=== PATIENT | female | born 2000 | race Caucasian/White ===

== ENCOUNTER 2022-07-19 11:27 | Day surgery (SDC) | payer MEDICAID, SELFPAY ==
[2022-07-19 12:08] LABS: Internal QC Validated? YES +Cl - CLEAR BKGD; Pregnancy, Urine Negative Negative
[2022-07-19 12:12] VITALS: BP 112/71; PULSE 54; RESP 16; TEMP 37.1; O2SAT 97; BMI 27.1
[2022-07-19 12:29] LABS: Hematocrit 44.7 % (37-47); Hemoglobin 15.3 g/dL (12.0-15.0); Mean Corp Hgb Conc 34.2 g/dL (32-36); Mean Corpuscular Hgb 29.8 pg (27.0-32.0); Mean Corpuscular Volume 87.1 fL (81-99); Mean Platelet Vol. 10.6 fl (6.2-12.0); Platelet Count 240 K/mm3 (150-450); RBC Distribution Width CV 12.1 % (11.6-14.6); RBC Distribution Width SD 38.8 fl (35.1-43.9); Red Blood Count 5.13 M/mm3 (4.2-5.4); White Blood Count 7.7 K/mm3 (4.4-11.0)
[2022-07-19] MEDS: Lactated Ringers 1,000 ML 15 ML IV (12:31)
--- NOTE | 2022-07-19 13:00 | FALS_PTH ---
PATIENT: ROULA NICOLAS [place] [facility] [id number] AGE/SX: 21/ ROOM: RE07/19/[address]: Dr. Danette Yanez DO : 2000 BED: DIS: 07/19/2022 SPEC #: [id number] RECD: 07/22/22 07:33 STATUS: ALICIA MARCY #: [id number] ALYX: 07/19/22 13:[address]: Danette Yanez DEPT: SURGICAL PATHOLOGY RECD BY: Altagracia Bocanegra ENTERED: 07/22/22 08:21 SP TYPE: FALL TUBES OTHR DR: Flora Phelps PA-C Tissues: Fallopian tube Procedures: Surgery Specimen Level II HEADER OPERATION: Laparoscopic salpingectomy, IUD removal PRE-OP DIAGNOSIS: Request for sterilization TISSUE SUBMITTED: Bilateral fallopian tubes MICROSCOPIC DIAGNOSIS Bilateral fallopian tubes, salpingectomy: Bilateral fallopian tubes, no pathologic diagnosis. A paratubal cyst. SJ:paige 07/23/2022 MICROSCOPIC DESCRIPTION Slides are reviewed. GROSS DESCRIPTION Received in fixative is one container labeled with the patient's name and designated bilateral fallopian tubes. The specimen consists of bilateral fallopian tubes including fimbrial ends. One of the fallopian tubes measures 3.5 cm in length and 0.5 cm in diameter. A paratubal cyst is noted adjacent to this fallopian tube measuring 1 cm in greatest dimension. The second fallopian tube is received in two pieces and measures 4 cm in length and 0.5 cm in diameter. The fallopian tubes are not identified as right or left. Sections reveal unremarkable cut surfaces. Operations Agent sections are submitted in two cassettes as follows: 1 - intact fallopian tube, 2 - fallopian tube received in two pieces. / JANEE:paige 07/22/2022 TC:5 CPT: 11351 x2
--- NOTE | 2022-07-19 13:50 | DCINST_ITS ---
Discharge Instructions Diet Discharge Diet: No restrictions Activity Discharge Activity: May Drive (Once you are no longer taking Percocet. Once you feel you strong enough to slam on a break or turn a steering wheel sharply) May resume sexual activity in: 1 week (No intercourse, tampons, or soaking in water for 1 week) Ice area for (Minutes): 15 Weight Bearing Status: Weight bearing as tolerated Lifting Restrictions: Nothing heavier than 10-15 lbs for 1 week Dressing / Incision Call your doctor if your incision/area has: Continuous Slow Oozing, Sudden Increased Bleeding, Increased Pain/ Swelling, Increased Redness, Foul Smelling Discharge and Swelling at the incision site Call your doctor if you observe: Fever of 101 or Higher, Coldness, Increased Pain, Numbness or Tingling, Change in Color, Inability to urinate, Inability to have a bowel movement, Using more than 1 pad per hour, Shortness of breath, Dizziness, Fainting spells, Swelling in the ankles, Chest pain, Increased palpitations (irregular heartbeat), Calf discomfort and Uncontrolled pain Suture Line Care: Avoid Pulling/Pushing and Avoid Pinching/Bending Remove Dressing in: leave until fall off Cleanse incision/area with: Soap & Water Follow Up Care Please Follow Up With: Danette Yanez DO When: 1 week post op Test Results: Test results from this visit will be discussed in further detail at your follow- up appointment, if applicable. Discharge Plan Admission Primary Reason for Your Visit: surgery Attending Provider: Danette Yanez Primary Care Provider: Flora Phelps Discharge Orders/Prescriptions Prescriptions: New oxycodone-acetaminophen [Percocet] 5-325 mg tablet 1 tab PO Q6H PRN (Reason: pain) 7 Days Qty: 10 0RF Referrals / Follow Up: Flora Phelps PA-C [Primary Care Provider] - Disposition Disposition (needs filled in before D/C Order can be placed): Home, Self Care
--- NOTE | 2022-07-19 13:53 | OP.PCM_ITS ---
Problems Associated Problem List Diagnoses (1) Sterilization: Report of Operation Date of Procedure: 07/19/22 Pre-Operative Diagnosis: Request for sterilization IUD removal Post-Operative Diagnosis: As above Surgery/Procedure Performed:: Laparoscopic bilateral salpingectomy IUD removal Description of Surgical Findings:: IUD removed intact. Normal appearing pelvis. Normal appearing uterus and bilateral adnexa Surgeon: Danette Yanez sporting goods sales associate: None Type of Anesthesia: General Special Medications: None Specimen's removed: Bilateral fallopian tubes Drains: None Estimated Blood Loss (mL): < 50 cc Fluids Replaced: 600 cc Description of Procedure: The patient was taken to the operating room where general anesthesia was induced. She was prepped and draped in the dorsal lithotomy position using yellowfin stirrups. A weighted speculum was placed in the vagina to expose the cervix. The anterior lip of the cervix was grasped with a single-tooth tenaculum. The intrauterine device was removed using a ring forcep. IUD strings were grasped and using gentle traction the IUD was removed intact. A uterine manipulator was placed. The weighted speculum was removed. Gloves were changed and attention was turned to the abdominal portion of the procedure. Local was infiltrated at all port sites. An infraumbilical 5 mm incision was made to accommodate a 5 mm port. This 5 mm infraumbilical port was placed under direct visualization using the laparoscope. Once confirmed intraperitoneal, CO2 insufflation was initiated. Bowel was inspected after entry and no obvious injury noted. Patient was placed in Trendelenburg. A left lateral 5 mm port was placed. A right lateral 5 mm port was placed. The pelvis was noted to be normal-appearing. The uterus and bilateral adnexa were normal-appearing. The left fallopian tube was elevated out of the pelvis and followed out to the fimbriated end. Using the LigaSure device the mesosalpinx was serially clamped, cauterized, and transected hugging adjacent to the tube until reaching level of the cornua. Once at the level of the cornua the fallopian tube was transected and removed. The same was performed on the right after following the right fallopian tube out to the fimbriated end. The right mesosalpinx was serially clamped, cauterized, and transected hugging adjacent to the tube until reaching level of the cornua. Once at the level cornua the right fallopian tube was removed. Bilateral fallopian tubes were sent to pathology for review. Hemostasis was noted. The abdomen was exsufflated and all ports were removed. The port sites were closed with suture and glue. From below all instruments were removed from the vagina and vaginal sweep was performed. Instrument, spong e, needle counts were correct. The patient was taken to the recovery in stable condition. Grafts/Implants Used: None Procedure Start Time: 14:29 Procedure Stop Time: 15:06 Complications None Admit VTE Documentation VTE Present on Admission: No VTE Mechan Device Prophylaxis: SCD's
[2022-07-19 15:16] VITALS: BP 111/72; BP 112/71; PULSE 69; RESP 18; TEMP 36.5; O2SAT 96
[2022-07-19 15:30] VITALS: BP 103/72; BP 112/71; PULSE 52; RESP 16; O2SAT 99
[2022-07-19 15:44] VITALS: BP 112/71; BP 99/63; PULSE 47; RESP 16; O2SAT 99
[2022-07-19 16:00] VITALS: BP 112/71; BP 97/66; PULSE 52; RESP 16; TEMP 36.5; O2SAT 98
[2022-07-19 16:44] VITALS: BP 103/73; BP 112/71; PULSE 53; RESP 16; O2SAT 97
== END 2022-07-19 17:07 | disposition home or self-care (01) ==
LOC: SDC 11:31 → AC 11:33
PROVIDERS: PCP Family Medicine; Visit Provider Obstetrics & Gynecology
PROC: (CPT 58661; principal; 2022-07-19 12:45)
DX: Z30.2 Encounter for sterilization (principal); N83.8 Other noninflammatory disorders of ovary, fallopian tube and broad ligament; F12.90 Cannabis use, unspecified, uncomplicated; F17.290 Nicotine dependence, other tobacco product, uncomplicated; Z30.432 Encounter for removal of intrauterine contraceptive device; Z87.11 Personal history of peptic ulcer disease
CPT/HCPCS: 58661; 58301; 00840; 81025; 85027; 86850; 86900; 86901; 88302; J7120; J2405